=== PATIENT | female | born 1955 | race American Indian/Alaskan Native ===

== ENCOUNTER 2019-11-02 16:41 | Emergency (ER) | payer SELFPAY ==
[2019-11-02] MEDS ORDERED: ZIPRASIDONE MESYLATE 20 MG VIAL IM ONE (17:02)
[2019-11-02] MEDS ORDERED: diphenhydrAMINE 50 MG/ML VIAL IM ONE (17:02)
[2019-11-02] MEDS ORDERED: WATER FOR INJ Sterile (PF) 10 ML ONE (17:12)
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
[2019-11-02 18:03] LABS: Basophils # (Auto) 0.1 K/mm3 (0.0-0.1); Basophils % (Auto) 0.7 % (0.0-1.8); Eosinophils % (Auto) 0.5 % (0.0-4.3); Hematocrit 38.6 % (30.3-42.9); Hemoglobin 12.8 gm/dl (10.1-14.3); Lymphocytes # (Auto) 1.4 K/mm3 (1.2-5.4); Lymphocytes % (Auto) 15.7 % (13.4-35.0); Mean Corpuscular HGB Conc 33 % (30-34); Mean Corpuscular Volume 92 fl (79-97); Monocytes # (Auto) 0.9 K/mm3 (0.0-0.8); Monocytes % (Auto) 9.6 % (0.0-7.3); Platelet Count 308 K/mm3 (140-440); Red Blood Count 4.18 M/mm3 (3.65-5.03); Red Cell Distribution Width 13.7 % (13.2-15.2)
[2019-11-02 18:13] LABS: BUN/Creatinine Ratio 19; Blood Urea Nitrogen 13 mg/dL (7-17); Calcium 9.9 mg/dL (8.4-10.2); Hemolysis Index 17
[2019-11-03] LABS: Bacteria,Urine 1+ /HPF (Negative); Bilirubin,Urine NEG (Negative); Blood,Urine SM (Negative); Color,Urine Yellow (Yellow); Mucus,Urine FEW /HPF; Urobilinogen,Urine < 2.0 mg/dL (<2.0)
[2019-11-03 00:08] LABS: Amphetamine Screen,Urine PRESUMPTIVE NEGATIVE; Benzodiazepines Screen,Urine PRESUMPTIVE NEGATIVE; Cocaine Screen,Urine PRESUMPTIVE NEGATIVE; Methadone Screen,Urine PRESUMPTIVE NEGATIVE; Opiate Screen,Urine PRESUMPTIVE NEGATIVE
[2019-11-03 00:42] LABS: Cannabinoid Screen,Urine PRESUMPTIVE POSITIVE
[2019-11-03] MEDS ORDERED: ZIPRASIDONE MESYLATE 20 MG VIAL IM ONE ×4 (09:50→14:33)
[2019-11-03] MEDS ORDERED: LORazepam 2 MG/ML VIAL ONE (14:28)
[2019-11-03] MEDS ORDERED: WATER FOR INJ Sterile (PF) 10 ML ONE (14:28)
[2019-11-03] MEDS ORDERED: LORazepam 2 MG/ML VIAL IM ONE (14:34)
[2019-11-03] MEDS ORDERED: ONDANSETRON 4 MG ODT TAB ONE (22:39)
[2019-11-04] MEDS ORDERED: LORazepam 2 MG TAB ONE (11:07)
[2019-11-04] MEDS ORDERED: ZIPRASIDONE MESYLATE 20 MG VIAL IM ONE ×2 (11:11→11:13)
--- NOTE | 2019-11-04 11:11 | Event Note ---
Date: 11/04/19 Patient was attempting to leave the emergency department. She is exhibiting erratic behavior. Patient had to be given Geodon to control her behavior and aggressiveness.
[2019-11-04] MEDS ORDERED: LORazepam 1 MG TAB PO ONE (11:45)
--- NOTE | 2019-11-04 13:00 | Consultation ---
History of Present Illness - Reason for Consult Consult date: 11/04/19 Reason for consult: psychosis - History of Present Psychiatric Illness Jayla Machado is a 64y/o female patient who was brought to the ER for erratic behavior. I attempted to interview the patient today. She was banging on the door and window from inside her room as I was walking up. She was shouting. Attempted to speak with the patient, she was aggressive, disorganized, cursing, and uncooperative. The patient starts snatching signs off the seats in the hallway. She says to me, "I want your name. you are not just going to ask me questions." She then says "I don't know why those men are in my daughter's psy." She then states, "I don't have to answer any of your damn questions." She is asking for my "identification number" as I'm walking off. PAST PSYCHIATRIC HISTORY: Unable to obtain PAST MEDICAL HISTORY: Unable to obtain Family Psychiatric History Unable to obtain SOCIAL HISTORY Unable to obtain REVIEW OF SYSTEMS Unable to obtain MSE Appearance: Awake. Dressed appropriately. Behavior: Erratic, uncooperative, aggressive Diagnoses: Cocaine Abuse, Uncomplicated Plan Haldol 5mg IM q6H prn severe agitation Ativan 2mg IM q6H prn severe agitation Cogentin 0.5mg po BID Risperidone 1mg po BID Doxepoin 10mg po qhs Medical: Per primary Sitter: Defer to primary Disposition: The patient meets the requirement for acute inpatient psychiatric treatment. She may transfer to an acute facility once medically cleared. Will continue to follow until patient is transferred or condition stabilizes. Please call with any questions or concerns. Thank you for this consult. Medications and Allergies Allergies Allergy/AdvReac Type Severity Reaction Status Date / Time No Known Allergies Allergy Unverified 11/02/19 17:22 Home Medications Medication Instructions Recorded Confirmed Last Taken Type OLANzapine [Zyprexa] 1 tab PO QHS 11/02/19 11/02/19 Unknown History Active Meds: Active Medications Labetalol HCl (Labetalol) 100 mg PO BID [facility] Last Admin: 11/04/19 11:44 Dose: Not Given Documented by: Olanzapine (Zyprexa) 10 mg PO QHS [facility] Last Admin: 11/03/19 22:45 Dose: 10 mg Documented by: Mental Status Exam - Vital signs Last Vital Signs Temp 97.8 F 11/04/19 07:14 Pulse 89 11/04/19 07:14 Resp 18 11/04/19 07:14 BP 134/98 11/04/19 07:14 Pulse Ox 98 11/04/19 07:14 Results Result Diagrams: 11/02/19 17:49 11/02/19 17:49 All other labs normal.
[2019-11-04] MEDS ORDERED: HALOPERIDOL LACTATE 5 MG/1 ML INJ IM PRN (13:09)
[2019-11-04] MEDS ORDERED: LORazepam 2 MG/ML VIAL IM PRN (13:14)
[2019-11-04] MEDS ORDERED: MELATONIN 5 MG TAB PO PRN (13:15)
[2019-11-04] MEDS: risperiDONE 1 MG TAB PO SCH ×2 (15:24→22:37)
[2019-11-04] MEDS ORDERED: BENZTROPINE 0.5 MG TAB PO SCH (22:00)
[2019-11-04] MEDS: DOXEPIN 10 MG CAP PO SCH (22:37)
[2019-11-04] MEDS: BENZTROPINE 0.5 MG TAB PO SCH (22:37)
[2019-11-05] MEDS: risperiDONE 1 MG TAB PO SCH ×2 (12:35→22:34)
[2019-11-05] MEDS: BENZTROPINE 0.5 MG TAB PO SCH ×3 (12:35→22:34)
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
[2019-11-05] MEDS: DOXEPIN 10 MG CAP PO SCH (22:35)
[2019-11-06 07:56] VITALS: BP 133/77
[2019-11-06] MEDS: BENZTROPINE 0.5 MG TAB PO SCH (10:06)
[2019-11-06] MEDS: risperiDONE 1 MG TAB PO SCH (10:06)
== END 2019-11-06 11:46 ==
LOC: ED 16:41 → EEVIPCON 16:41 → ED 11-06 11:46
DX: F23 Brief psychotic disorder (principal); F22 Delusional disorders; Z04.6 Encounter for general psychiatric examination, requested by authority; Z79.899 Other long term (current) drug therapy
CPT/HCPCS: 36415; 80048; 80307; 81001; 85025; 96372; 99285; J1200; J1630; J2060; J3486; 80320; G0480; Q0162